=== PATIENT | male | born 1970 | race Hispanic/Latino ===

== ENCOUNTER 2017-01-13 19:42 | Emergency (ER) | payer OTHER ==
[~2017-01-13] VITALS: Ht 180.3 cm; Wt 98.9 kg
[~2017-01-13 19:42] MED LIST: ACULAR 0.5%5 ML OS; POLYTRIM O200 GTT/BO OPH; TYLENOL #31 TAB PO
--- NOTE | 2017-01-13 21:26 | ED GI/GU/ABDOMINAL COMPLAINT ---
History of Present Illness General Chief Complaint: General Adult Stated Complaint: HEMORRHOIDS Source: patient, family, old records Exam Limitations: no limitations Vital Signs & Intake/Output Vital Signs & Intake/Output Vital Signs Date Time Temp Pulse Resp B/P B/P Pulse O2 O2 Flow FiO2 Mean Ox Delivery Rate 01/13 2309 98.8 73 18 154/85 97 Room Air 01/13 2203 Room Air 01/13 2014 97.3 16 128/83 97 Room Air ED Intake and Output 01/14 0000 01/13 1200 Intake Total Output Total Balance Patient 218 lb Weight Weight Estimated Measurement Method Allergies Coded Allergies: NO KNOWN ALLERGIES (07/23/15) Reconcile Medications Cephalexin (Keflex) 500 MG CAPSULE 1 CAP PO TID abscess Ketorolac Tromethamine (Acular 0.5%) 5 ML JEWEL 1 GTT OS 4 TIMES/DAY PRN PAIN Lidocaine HCl 2 % JEL..ML. 1 JANIA TOP BID PRN PAIN Oxycodone HCl/Acetaminophen (Percocet 5-325 MG Tablet) 5 MG-325 MG TABLET 1 TAB PO BID PRN pain Polytrim (Polytrim Eye Drops) 200 GTT/BOT GTT 1 GTT OPH 4 TIMES/DAY INFECTION FOR 7 DAYS Sulfamethoxazole/Trimethoprim (Bactrim Ds Tablet) 800 MG-160 MG TABLET 1 TAB PO BID abscess Tylenol With Codeine (Tylenol With Codeine #3 Tablet) 1 TAB TAB 1 TAB PO Q6H PRN PAIN Triage Note: RECEIVED 46 YO MALE WITH HX OF HEMORRHOIDS, C/O ANAL PAIN AND WORSENING SWELLING. NO BLEEDING NOTED. Triage Nurses Notes Reviewed? yes Onset: Abrupt Duration: day(s): (2), constant Timing: single episode today Quality/Severity: aching, sharpness Severity Numbers: 10 Location: [facility] Radiation: no radiation Activities at Onset: none Prior Abdominal Problems: none No Modifying Factors: none Associated Symptoms: DENIES HPI: 46-year-old male with no medical history presents to ER for evaluation complain of questionable abscess linea severe rectal pain 10 out of 10 for the past 2 days. He states that when he had a colonoscopy done several years ago he was told he had hemorrhoids however is never had pain like this before. He had a normal bowel movement today no bleeding. He attempted to use Preparation H without improvement. No modifying factors or associated symptoms otherwise. (EZIO OLGUIN,BLANE) Past History Travel History Traveled to [place] past 21 day No Medical History Any Pertinent Medical History? 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 No (BLANE ZAMORA) Review of Systems Review of Systems Constitutional: Reports: see HPI. All Other Systems: Reviewed and Negative Comments Review of systems: See HPI, All other systems negative. Constitutional, no chills no fever, no malaise HEENT: No visual changes no sore throat no congestion Cardiovascular: No chest pain , no palpitation Skin: no rashes, no change in skin Respiratory: No dyspnea no cough no sputum GI: No nausea no vomiting, no diarrhea, : No dysuria Muscle skeletal: No joint pain, no joint swelling, no back pain, no neck pain, Neurologic: no headache Psych: No stress Heme/endocrine: No bruising Immunology: No lymphadenopathy (BLANE ZAMORA) Physical Exam Physical Exam General Appearance: well developed/nourished, alert, awake Gastrointestinal: soft, non-tender Comments: Well-developed well-nourished patient in no apparent distress. HEENT: Atraumatic, extraocular motion intact Neck: Supple, FROM Back: FROM Respiratory: =No respiratory distress. Patient speaking in full complete sentences. Breath sounds clear to auscultation bilaterally Rectal: There is a perirectal abscess noted to the left gluteal region, indurated fluctuant no discharge elicited with palpation, no hemorrhoid Extremities: full range of motion Neuro: awake, alert, and oriented to person, place and time. There were no obvious focal neurologic abnormalities. Skin: Warm & dry;No appreciable rash on exposed skin Psych: Mood affect normal, normal memory normal judgment. Core Measures ACS in differential dx? No Severe Sepsis Present: No Septic Shock Present: No (BLANE ZAMORA) Progress Differential Diagnosis: FISTULA FISSURE, ABSCESS, HEMORRHOID Plan of Care: Orders Procedure Date/time Status TRUNK AREA CULTURE 01/131 Active Laboratory Tests 01/13/17 2101: Methadone Screen Cancelled, Barbiturate Screen Cancelled, Ur Phencyclidine Scrn Cancelled, Amphetamines Screen Cancelled, U Benzodiazepines Scrn Cancelled, Urine Cocaine Screen Cancelled, Urine Cannabis Screen Cancelled Microbiology 01/13 2223 TRUNK: Culture & Sensitivity - RECD 01/13 2223 TRUNK: Gram Stain - RECD Patient tolerated procedure well culture was sent he will return in 48 hours for wound check prescription for antibiotics lidocaine jelly and Percocet provided I answered all his questions he feels comfortable plan (BLANE ZAMORA) Initial ED EKG: none (BLANE ZAMORA) Departure Departure Time of Disposition: 2236 Disposition: HOME OR SELF CARE Condition: Stable Clinical Impression Primary Impression: Abscess Referrals: MARJORIE GALAVIZ (PCP/Family) Additional Instructions: Bactrim Keflex as directed Percocet for pain. epson salt baths as discussed. follow up in 48 hours for wound check. return at anytime sooner with any concerns these were sent to your pharmacy Departure Forms: Customer Survey General Discharge Information Prescriptions: Current Visit Scripts Sulfamethoxazole/Trimethoprim (Bactrim Ds Tablet) 1 TAB PO BID #14 TAB Cephalexin (Keflex) 1 CAP PO TID #21 CAP Oxycodone HCl/Acetaminophen (Percocet 5-325 MG Tablet) 1 TAB PO BID PRN pain #10 TAB Lidocaine HCl 1 JANIA TOP BID PRN PAIN #15 ML (BLANE ZAMORA) PA/CLEAN UP WORKER Co-Sign Statement Statement: ED Attending supervision documentation- [] I saw and evaluated the patient. I have also reviewed all the pertinent lab results and diagnostic results. I agree with the findings and the plan of care as documented in the PA's/CLEAN UP WORKER's documentation. [X] I have reviewed the ED Record and agree with the PA's/CLEAN UP WORKER's documentation. [] Additions or exceptions (if any) to the PAs/CLEAN UP WORKER's note and plan are summarized below: [] (AREN ELDER,RENEE) Procedures Incision and Drainage Site: PERIRECTAL Blade Size: 11 I & D Procedure: Yes: betadine prep, sterile drapes applied, sterile dressing applied. (BLANE ZAMORA)
[2017-01-13] MEDS ORDERED: LIDOCAINE HCL5 ML TOP (22:39)
[2017-01-13] MEDS ORDERED: PERCOCET 5-3251 EACH PO (22:39)
[2017-01-13] MEDS ORDERED: BACTRIM DS TAB1 EACH PO (22:39)
[2017-01-13] MEDS ORDERED: KEFLEX500 M1 PO (22:39)
[2017-01-13 23:09] VITALS: BP 154/85
== END 2017-01-13 23:10 ==
LOC: ERH 19:42
DX: K61.1 Rectal abscess (principal)
CPT/HCPCS: 80307; 87070; 96372